=== PATIENT | male | born 1960 | race Caucasian/White ===

== ENCOUNTER 2019-08-05 16:35 | Emergency (ER) | payer SELFPAY ==
[~2019-08-05] VITALS: Ht 190.5 cm; Wt 79.4 kg
[2019-08-05 16:54] VITALS: BP 153/88
== END 2019-08-05 17:42 | disposition left against medical advice (07) ==
LOC: ER 16:35
DX: N50.89 Other specified disorders of the male genital organs (principal); Z53.21 Procedure and treatment not carried out due to patient leaving prior to being seen by health care provider
CPT/HCPCS: 76870